=== PATIENT | female | born 2000 | race Caucasian/White ===

== ENCOUNTER 2018-04-21 11:16 | Inpatient (IN) | payer BC, OTHER ==
--- NOTE | 2018-04-21 11:45 | ED ---
Psychiatric Complaint - HPI Summary HPI Summary: 17yo F with hx of depression/anxiety presents with months of worsening similar symptoms. She has thought of suicide but has no plan. She is stressed by her boyfriend. She is unaware of last menstral period but has recently taken a neg test. She also has a 14mo old child, who keeps her from harming herself. She is not on any medications currently and hasnt seen a therapist in years. She is working a job but feels increasingly stressed. - History Of Current Complaint Chief Complaint: EDMentalHealth Time Seen by Provider: 04/21/18 11:35 Hx Obtained From: Patient, Family/[employer] Line - Allergies/Home Medications Allergies/Adverse Reactions: Allergies Allergy/AdvReac Type Severity Reaction Status Date / Time No Known Allergies Allergy Verified 04/21/18 11:18 PMH/Surg Hx/FS Hx/Imm Hx Psychiatric History: Reports: Hx Anxiety, Hx Depression Infectious Disease History: No Infectious Disease History: Denies: Traveled Outside the US in Last 30 Days - Family History Known Family History: Positive: Hypertension, Other - denies MH problems - Social History Occupation: Employed Part-time Lives: With Family Alcohol Use: None Hx Substance Use: No Smoking Status (MU): Light Every Day Tobacco Smoker Review of Systems Constitutional: Negative Eyes: Negative Negative: Shortness Of Breath Negative: Abdominal Pain Positive: no symptoms reported Positive: Other - no self injury Positive: Anxious, Depressed, Other - SI All Other Systems Reviewed And Are Negative: Yes Physical Exam Triage Information Reviewed: Yes Vital Signs On Initial Exam: Initial Vitals Temp Pulse Resp BP Pulse Ox 98.6 F 67 16 116/88 97 04/21/18 11:18 04/21/18 11:18 04/21/18 11:18 04/21/18 11:18 04/21/18 11:18 Vital Signs Reviewed: Yes Appearance: Positive: Well-Appearing, No Pain Distress, Well-Nourished Skin: Positive: Warm, Skin Color Reflects Adequate Perfusion, Dry, Other - old scars L forearm from self injury Head/Face: Positive: Normal Head/Face Inspection Eyes: Positive: EOMI ENT: Positive: Normal ENT inspection Neck: Positive: Supple Respiratory/Lung Sounds: Positive: Clear to Auscultation Cardiovascular: Positive: RRR Abdomen Description: Positive: Nontender, Soft Musculoskeletal: Positive: Strength/ROM Intact Neurological: Positive: Normal, Alert, Oriented to Person Place, Time Psychiatric: Positive: Depressed, Other - discusses persistent SI without plan or real threat of harming herself due to her child AVPU Assessment: Alert Diagnostics - Vital Signs Vital Signs Temp Pulse Resp BP Pulse Ox 04/21/18 11:18 98.6 F 67 16 116/88 97 - Laboratory Result Diagrams: 04/21/18 12:14 04/21/18 12:14 Lab Statement: Any lab studies that have been ordered have been reviewed, and results considered in the medical decision making process. - EKG EKG Cardiac Rate: Bradycardia - 55 EKG Rhythm: Sinus Rhythm ST Segment: Normal Ectopy: None EKG Interpretation: Normal for age Course/Dx - Course Course Of Treatment: pt was medically cleared for crisis eval. Following this it was elected she be admitted for further eval and tx by Dr Castellanos the psychiatrist. - Differential Dx/Clinical Impression Differential Diagnosis/HQI/PQRI: Positive: Anxiety, Bipolar Disorder, Depression Provider Diagnosis: Depression Discharge - Sign-Out/Discharge Documenting (check all that apply): Patient Departure - Discharge Plan Condition: Stable Disposition: PSYCHIATRIC FACILITY-[facility] [place] Referrals: Tristian PASTRANA,Juan Linda [Primary Care Provider] - - Billing Disposition and Condition Condition: STABLE Disposition: Psychiatric Facility [facility] [place] - Attestation Statements Document Initiated by Scribe: No
[2018-04-21 12:30] LABS: ABS Basophils 0.1 10^3/ul (0-0.2); ABS Eosinophils 0.2 10^3/ul (0-0.6); ABS Lymphocytes 1.5 10^3/ul (1.0-4.8); ABS Monocytes 0.5 10^3/ul (0-0.8); ABS Neutrophils 6.9 10^3/ul (1.5-7.7); ABS Nucleated RBC 0 10^3/ul; Eosinophil % 2.5 % (0-6); Hematocrit 41 % (35-47); Hemoglobin 13.8 g/dl (12.0-16.0); Lymphocyte % 16.1 % (25-47); Mean Corpuscular HGB Conc 34 g/dl (31-36); Mean Corpuscular Hemoglobin 32 pg (27-31); Mean Corpuscular Volume 94 fL (80-97); Mean Platelet Volume 8.5 um3 (7.4-10.4); Nucleated Red Blood Cells % 0; Platelet Count 196 10^3/ul (150-450); Red Blood Count 4.37 10^6/ul (4.00-5.40); Red Cell Distribution Width 13 % (10.5-15); White Blood Count 9.2 10^3/ul (3.5-10.8)
[2018-04-21 12:41] LABS: EGFR Non-African American 76.7 (>60)
[2018-04-21 12:55] LABS: Urine Appearance Clear; Urine Blood Negative (Negative); Urine Color Yellow; Urine Ketones Negative (Negative); Urine Protein Negative (Negative); Urine Specific Gravity 1.015 (1.010-1.030); Urine Urobilinogen Negative (Negative)
[2018-04-21] MEDS ORDERED: Acetaminophen TAB* 325 MG PO PRN (23:35)
[2018-04-21] MEDS ORDERED: Al Hydrox/Mg Hydrox/Simet LIQ* 30 ML UDC PO PRN (23:35)
[2018-04-22] MEDS: Vitamin THERAPEUTIC TAB PO SCH (08:42)
[2018-04-22] MEDS ORDERED: hydrOXYzine HCL TAB* 25 MG PO PRN (13:18)
[2018-04-22] MEDS ORDERED: Venlafaxine EXT RELEASE CAP* 75 MG ONE (13:28)
[2018-04-22] MEDS: Venlafaxine EXT RELEASE CAP* 75 MG PO SCH (13:30)
--- NOTE | 2018-04-22 13:43 | PN ---
MHU: Group Therapy Note - Service Type Service Type: 28838 Group Psychotherapy - Cognitive Behavioral Group Therapy ( CBT):Patient was attentive and participatory in CBT programming this morning, and remained in good behavioral control. Patient expressed positive insights regarding relevant treatment interventions and goals.
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
[2018-04-23 07:25] VITALS: BP 107/67
[2018-04-23] MEDS: Venlafaxine EXT RELEASE CAP* 75 MG PO SCH (11:55)
[2018-04-23] MEDS: Vitamin THERAPEUTIC TAB PO SCH (11:55)
--- NOTE | 2018-04-23 21:33 | CONS ---
CC: Dr. Lubin; [facility] CONSULTATION REPORT: ADDENDUM: "I do not know if there is a release for the [facility]." FLOYD GARCIA, HEALTH AND SAFETY DIRECTOR [id number]/CPS #: [id number] [facility]
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
== END 2018-04-23 13:30 | disposition home or self-care (01) | DRG 751 ==
LOC: ED 11:16 → BSU 14:54
PROVIDERS: ADMIT Psychiatry & Neurology Psychiatry; ATTEND Psychiatry & Neurology Psychiatry
DX: F33.9 Major depressive disorder, recurrent, unspecified (principal); R45.851 Suicidal ideations; F41.8 Other specified anxiety disorders; F17.210 Nicotine dependence, cigarettes, uncomplicated
CPT/HCPCS: 36415; 80053; 80307; 80320; 80329; 81003; 84443; 84702; 85025; 90686; 93005; 99284; A9270-GY; G0480

== ENCOUNTER 2018-09-24 13:38 | Emergency (ER) | payer BC ==
[2018-09-24] MEDS ORDERED: Acetaminophen TAB* 325 MG PO ONE (14:35)
[2018-09-24 15:02] VITALS: BP 100/61
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
== END 2018-09-24 15:01 | disposition home or self-care (01) ==
LOC: ED 13:38
DX: J01.90 Acute sinusitis, unspecified (principal); F41.9 Anxiety disorder, unspecified; F32.9 Major depressive disorder, single episode, unspecified; Z87.891 Personal history of nicotine dependence
CPT/HCPCS: 99282; A9270-GY

== ENCOUNTER 2018-11-03 19:00 | Emergency (ER) | payer BC ==
[2018-11-03] MEDS ORDERED: Ibuprofen TAB* 800 MG PO ONE (20:29)
[2018-11-03] MEDS ORDERED: oxyCODONE/Acetamin 5/325 MG* TAB PO ONE (20:30)
[2018-11-03] MEDS ORDERED: Clindamycin CAP* 150 MG PO ONE (20:30)
--- NOTE | 2018-11-03 20:35 | ED ---
Headache - HPI Summary HPI Summary: This patient is a 18 year old F presenting to ED with a chief complaint of constant headache since 6 days ago. The patient rates the pain 2/10 in severity. Symptoms aggravated by nothing. Symptoms alleviated by nothing. Patient reports lower back pain and left breast pain where she has piercing. Patient denies fever. PMHx of anxiety and depression. FHx of HTN but no MH problems. Patient does not drink alcohol, use substances, but is a former smoker of tobacco. - History Of Current Complaint Chief Complaint: EDGeneral Stated Complaint: "HEADACAHE/ RT BREAST PAIN PER PT" Time Seen by Provider: 11/03/18 20:20 Hx Obtained From: Patient Onset/Duration: Started days ago - 6 days, Still Present Currently Pain Is: Current Pain Scale(0-10)= - 2 Timing: Constant Aggravating Factor: Nothing Allevating Factors: Nothing Associated Signs And Symptoms: Negative - Fever, Other (Noted In Comments) - Lower back pain, left breast pain - Allergies/Home Medications Allergies/Adverse Reactions: Allergies Allergy/AdvReac Type Severity Reaction Status Date / Time latex Allergy Itching Verified 11/03/18 19:03 witch leonarda Allergy Swelling Verified 11/03/18 19:03 PMH/Surg Hx/FS Hx/Imm Hx Sensory History: Denies: Hx Contacts or Glasses, Hx Hearing Aid Opthamlomology History: Denies: Hx Contacts or Glasses Psychiatric History: Reports: Hx Anxiety, Hx Depression, Hx of Violent Episodes Against Others Denies: Hx Eating Disorder Infectious Disease History: No Infectious Disease History: Denies: Traveled Outside the [place] in Last 30 Days - Family History Known Family History: Positive: Hypertension, Other - denies MH problems - Social History Alcohol Use: None Hx Substance Use: No Substance Use Type: Reports: None Hx Tobacco Use: Yes Smoking Status (MU): Former Smoker Type: Cigarettes Review of Systems Negative: Fever Musculoskeletal: Other - Lower back pain Skin: Other - Left breast pain Positive: Headache All Other Systems Reviewed And Are Negative: Yes Physical Exam - Summary Physical Exam Summary: VITAL SIGNS: Reviewed. GENERAL: Patient is a well-developed and nourished female who is lying comfortable in the stretcher. Patient is not in any acute respiratory distress. HEAD AND FACE: No signs of trauma. No ecchymosis, hematomas or skull depressions. No sinus tenderness. EYES: PERRLA, EOMI x 2, No injected conjunctiva, no nystagmus. EARS: Hearing grossly intact. Ear canals and tympanic membranes are within normal limits. MOUTH: Oropharynx within normal limits. NECK: Supple, trachea is midline, no adenopathy, no JVD, no carotid bruit, no c- spine tenderness, neck with full ROM.d CHEST: Symmetric, no tenderness at palpation LUNGS: Clear to auscultation bilaterally. No wheezing or crackles. CVS: Regular rate and rhythm, S1 and S2 present, no murmurs or gallops appreciated. ABDOMEN: Soft, non-tender. No signs of distention. No rebound no guarding, and no masses palpated. Bowel sounds are normal. EXTREMITIES: FROM in all major joints, no edema, no cyanosis or clubbing. NEURO: Alert and oriented x 3. No acute neurological deficits. Speech is normal and follows commands. SKIN: Dry and warm BREAST EXAM: left breast has small area of tenderness and induration on upper and lower outer quadrants close to the nipple. Triage Information Reviewed: Yes Vital Signs On Initial Exam: Initial Vitals Temp Pulse Resp BP Pulse Ox 97.8 F 90 14 110/66 98 11/03/18 19:03 11/03/18 19:03 11/03/18 19:03 11/03/18 19:03 11/03/18 19:03 Vital Signs Reviewed: Yes Diagnostics - Vital Signs Vital Signs Temp Pulse Resp BP Pulse Ox 11/03/18 19:03 97.8 F 90 14 110/66 98 - Laboratory Lab Statement: Any lab studies that have been ordered have been reviewed, and results considered in the medical decision making process. Headache Course/Dx - Course Course Of Treatment: This patient is a 18 year old F presenting to ED with a chief complaint of constant headache, lower back pain, and left breast pain since 6 days ago. During the ED course, physical exam revealed localized left breast tenderness and induration on the upper and lower quadrants near the nipple. Patient will be discharged home with dx of mastitis and lower back pain with instructions to follow up with Dr. Bhanu Mcgee, surgeon, in 2-3 days. Patient understands and agrees with this plan. - Diagnoses Provider Diagnoses: Mastitis, Lower back pain Discharge - Sign-Out/Discharge Documenting (check all that apply): Patient Departure - Discharge Patient Received Moderate/Deep Sedation with Procedure: No - Discharge Plan Condition: Stable Disposition: HOME Prescriptions: Clindamycin Cap(NF) [Clindamycin Cap 300 mg Cap(NF)] 300 mg PO Q6H #30 cap Ibuprofen TAB* [Motrin TAB* 800 MG] 800 mg PO Q6H PRN #30 tab PRN Reason: Pain Patient Education Materials: Mastitis (ED), Back Pain (ED) Referrals: Bhanu Mcgee MD [Medical Doctor] - 2 Days Additional Instructions: Follow-up with your Dr. Bhanu Mcgee, surgeon in 2-3 days. PLEASE RETURN TO THE ED IMMEDIATELY FOR WORSENING OR CONCERNING SYMPTOMS. - Billing Disposition and Condition Condition: STABLE Disposition: Home - Attestation Statements Document Initiated by Scribe: Yes Documenting Scribe: Christian Boles Provider For Whom Brain is Documenting (Include Credential): Per Rivas MD Scribe Attestation: Christian Jean, scribed for Per Rivas MD on 11/03/18 at 2044. Scribe Documentation Reviewed: Yes Provider Attestation: The documentation as recorded by the Christian pelaez accurately reflects the service I personally performed and the decisions made by me, Per Rivas MD Status of Scribe Document: Viewed
[2018-11-03 20:57] VITALS: BP 109/74
== END 2018-11-03 20:56 | disposition home or self-care (01) ==
LOC: ED 19:00
DX: N61.0 Mastitis without abscess (principal); M54.5 Low back pain; F41.9 Anxiety disorder, unspecified; F32.9 Major depressive disorder, single episode, unspecified; Z87.891 Personal history of nicotine dependence; Z91.040 Latex allergy status
CPT/HCPCS: 99284; A9270-GY

== ENCOUNTER 2019-01-01 20:07 | Emergency (ER) | payer BC ==
--- NOTE | 2019-01-01 20:48 | ED ---
Abdominal Pain/Female - HPI Summary HPI Summary: A 18 y/o female presents to [facility] with a chief complaint of lower abdominal/ pelvic pain for the past few hours. She has a Hx of ovarian cysts on both sides and claim that this is like a similar type of pain. At triage she rated her pain as a 7/10 in severity. Laying down and Ibuprofen alleviates her pain. She says that she woke up feeling fine. She has never needed surgery for her ovarian cysts. She has a 2 y/o daughter and has had no more pregnancies. Her LNMP finished one week ago. She claims that her ovarian cysts have normally happened in between periods. - History of Current Complaint Chief Complaint: EDAbdPain Stated Complaint: OVARY PAIN PER PT Time Seen by Provider: 01/01/19 20:40 Hx Obtained From: Patient Onset/Duration: Sudden Onset, Lasting Hours, Still Present Timing: Hours Severity Initially: Severe Severity Currently: Severe Pain Intensity: 7 Pain Scale Used: 0-10 Numeric Location: Diffuse - lower Radiates: No Character: Other: - unable to describe Aggravating Factor(s): Nothing Alleviating Factor(s): Other: - laying down and Ibuprofen Associated Signs and Symptoms: Negative: Fever Allergies/Adverse Reactions: Allergies Allergy/AdvReac Type Severity Reaction Status Date / Time latex Allergy Itching Verified 11/03/18 19:03 witch leonarda Allergy Swelling Verified 11/03/18 19:03 PMH/Surg Hx/FS Hx/Imm Hx Sensory History: Denies: Hx Contacts or Glasses, Hx Hearing Aid Opthamlomology History: Denies: Hx Contacts or Glasses EENT History: Denies: Hx Deafness Psychiatric History: Reports: Hx Anxiety, Hx Depression, Hx of Violent Episodes Against Others Denies: Hx Eating Disorder Infectious Disease History: No Infectious Disease History: Denies: Traveled Outside the [place] in Last 30 Days - Family History Known Family History: Positive: Hypertension, Other - denies MH problems - Social History Alcohol Use: None Hx Substance Use: No Substance Use Type: Reports: None Hx Tobacco Use: Yes Smoking Status (MU): Former Smoker Type: Cigarettes Review of Systems Negative: Fever Positive: Abdominal Pain All Other Systems Reviewed And Are Negative: Yes Physical Exam - Summary Physical Exam Summary: Appearance: Well-appearing, Well-nourished, lying in bed comfortable Skin: Warm, dry, no obvious rash Eyes: sclera anicteric, no conjunctival pallor ENT: mucous membranes moist Neck: deferred Respiratory: No signs of respiratory distress Cardiovascular: Appears well perfused, pulses are nml Abdomen: Mild lower abdominal tenderness Musculoskeletal: Moving all 4 extremities without obvious discomfort Neurological: Awake and alert, mentation is normal, speech is fluent and appropriate Psychiatric: affect is normal, does not appear anxious or depressed Triage Information Reviewed: Yes Vital Signs On Initial Exam: Initial Vitals Temp Pulse Resp BP Pulse Ox 98.9 F 106 18 114/74 98 01/01/19 20:09 01/01/19 20:09 01/01/19 20:09 01/01/19 20:09 01/01/19 20:09 Vital Signs Reviewed: Yes Diagnostics - Vital Signs Vital Signs Temp Pulse Resp BP Pulse Ox 01/01/19 20:09 98.9 F 106 18 114/74 98 - Laboratory Result Diagrams: 01/01/19 21:04 01/01/19 21:04 Lab Statement: Any lab studies that have been ordered have been reviewed, and results considered in the medical decision making process. Abdominal Pain Fem Course/Dx - Course Course Of Treatment: A 18 y/o female presents to [facility] with a chief complaint of lower abdominal/pelvic pain for the past few hours. She has a Hx of ovarian cysts on both sides and claim that this is like a similar type of pain. The physical exam revealed mild lower abdominal tenderness. In the ED course the patient was given 600 mg Ibuprofen PO. Blood work and chemistries obtained and are WNL. The patient will be discharged home and follow up with her PCP. The patient is agreeable with this plan. - Diagnoses Provider Diagnoses: Ruptured ovarian cyst Discharge - Sign-Out/Discharge Documenting (check all that apply): Patient Departure - DC Patient Received Moderate/Deep Sedation with Procedure: No - Discharge Plan Condition: Good Disposition: HOME Patient Education Materials: Ruptured Ovarian Cyst (ED) Forms: *Work Release Referrals: Tristian PASTRANA,Juan Linda [Primary Care Provider] - 4 Days (if not improving) - Billing Disposition and Condition Condition: GOOD Disposition: Home - Attestation Statements Document Initiated by Scribe: Yes Documenting Scribe: Juan Anaya Provider For Whom Scribe is Documenting (Include Credential): Salvatore Baldwin MD Scribe Attestation: Juan Jean, scribed for Salvatore Baldwin MD on 01/02/19 at 0156. Scribe Documentation Reviewed: Yes Provider Attestation: The documentation as recorded by the scribe, Juan Anaya accurately reflects the service I personally performed and the decisions made by me, Salvatore Baldwin MD Status of Scribe Document: Viewed
[2019-01-01] MEDS ORDERED: Ibuprofen TAB* 600 MG PO ONE (20:49)
[2019-01-01 21:11] LABS: ABS Eosinophils 0.2 10^3/ul (0-0.6); ABS Lymphocytes 2.2 10^3/ul (1.0-4.8); ABS Monocytes 0.6 10^3/ul (0-0.8); Eosinophil % 2.1 %; Hematocrit 41 % (35-47); Hemoglobin 14.1 g/dL (12.0-16.0); Lymphocyte % 21.6 %; Mean Corpuscular HGB Conc 34 g/dL (31-36); Mean Corpuscular Hemoglobin 32 pg (27-31); Mean Corpuscular Volume 94 fL (80-97); Mean Platelet Volume 8.4 fL (7.4-10.4); Nucleated Red Blood Cells % 0.1; Platelet Count 212 10^3/uL (150-450); Red Cell Distribution Width 13 % (10-15)
[2019-01-01 21:27] LABS: ALT 11 U/L (7-52); AST 13 U/L (13-39); Albumin 4.3 g/dL (3.2-5.2); Alkaline Phosphatase 58 U/L (34-104); Anion Gap 5 mmol/L (2-11); BUN/Creatinine Ratio 11.5 (8-20); Blood Urea Nitrogen 11 mg/dL (6-24); CO2 Carbon Dioxide 28 mmol/L (22-32); Calcium 9.4 mg/dL (8.6-10.3); Chloride 108 mmol/L (101-111); EGFR African American 89.7 (>60); EGFR Non-African American 74.1 (>60); Globulin 2.2 g/dL (2-4); Glucose 91 mg/dL (70-100); Potassium 3.7 mmol/L (3.5-5.0); Sodium 141 mmol/L (135-145); Total Protein 6.5 g/dL (6.4-8.9)
[2019-01-01 21:33] LABS: HCG Pregnancy < 0.60 mIU/mL
[2019-01-01 22:00] VITALS: BP 106/65
== END 2019-01-01 21:59 | disposition home or self-care (01) ==
LOC: ED 20:07
DX: N83.209 Unspecified ovarian cyst, unspecified side (principal); R10.30 Lower abdominal pain, unspecified; R10.2 Pelvic and perineal pain; Z87.891 Personal history of nicotine dependence
CPT/HCPCS: 36415; 80053; 84702; 85025; 99282; A9270-GY